=== PATIENT | male | born 1985 ===

== ENCOUNTER → 2017-03-24 15:03 | Day surgery (SDC) | payer OTHER ==
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
[~2017-03-24 15:03] MED LIST: Buffered Lidocaine 0.9% SYRIN* 5 ML/SYR SYRINGE ONE; Famotidine IV* 10 MG/ML 2 ML (20 mg) IV SLOW PU ONE; Famotidine IV* 10 MG/ML 2 ML (20 mg) ONE; Levofloxacin 750 MG IVPREMIX(* 750 MG/150 ML BAG ONE; Lidocaine 2% PF * 5 ML VIAL ONE; Ondansetron INJ* 2 MG/ML VIAL ONE; PROCHLORPERAZINE INJ 5 MG/ML 2 ML VIAL IV PRN; Propofol* 10 MG/ML 20 ML BTL IV PUSH ONE; fentaNYL* 50 MCG/ML 2 ML VIAL (100 MCG VIAL) IV PRN; fentaNYL* 50 MCG/ML 2 ML VIAL (100 MCG VIAL) ONE; oxyCODONE/Acetamin 5/325 MG* TAB PO PRN
[2017-03-24 19:56] VITALS: BP 151/86
--- NOTE | 2017-03-25 07:18 | OP ---
DATE OF OPERATION: 03/24/17 - [facility] DATE OF : 85 SURGEON: Dheeraj Maloney MD ANESTHESIOLOGIST: Dr. Bernie Forbes. ANESTHESIA: General. PRE-OP DIAGNOSES: 1. Urinary retention. 2. Tight urethral stricture in fossa navicularis. POST-OP DIAGNOSES: 1. Urinary retention. 2. Tight urethral stricture in fossa navicularis. OPERATIVE PROCEDURE: 1. Urethroscopy. 2. Urethral dilation. 3. Complex placement of coude urethral catheter (12-Bahraini). INDICATION FOR PROCEDURE: Mr. Peterson is a 32-year-old white male, who had past history of a distal urethral stricture, which had required urethral dilation in a urologist's office about 10 years ago. He presented to the emergency room at [facility] early this morning in urinary retention. Attempts at passing a urethral catheter were not successful. The patient was able to void a little bit and then he was urgently referred to my office. Several attempts at urethral dilations were not successful, even an 8-Bahraini female urethral catheter could not be passed due to obstruction at the level of the fossa navicularis. Post void bladder ultrasound showed a large residual of more than 500 cc. Because of the above history and findings and the persistent urinary retention, the patient is taken to the operating room on an urgent basis for the above procedure. PATHOLOGY: The urethral meatus looked normal. There was, however, a tight stricture just proximal to the meatus. The stricture was very tight and very dense and a firm area was felt in the urethra in the glans penis from the scarring. When the stricture was finally catheterized, it calibrated to a size to less than 5- Bahraini. DESCRIPTION OF PROCEDURE: After successful general anesthesia, the patient was placed in the lithotomy position and was prepped and draped for a cystoscopy. Attempt at passing small catheters were not successful due to the obstruction just proximal to the urethral meatus. A cystoscopy was not helpful in identifying the site of the stricture due to its proximity to the meatus. Attempts at dilation of the urethra with small Baron dilators caused a false passage in the distal penile urethra. The 17-Bahraini cystoscope was positioned at the level of the meatus. After multiple difficult attempts, an area that was suggestive of a stricture was noted, and a guidewire was successfully introduced through it and positioned inside the bladder. A size 5-Bahraini open-ended catheter was then fed on top of the guidewire and the stricture had to be dilated with the 5-Bahraini catheter to successfully introduced inside the bladder with urine draining from the catheter. The stricture was then dilated using an 8-Bahraini and then a 10-Bahraini open- ended catheter that were fed on top of the guidewire and introduced inside the bladder. For fear of loosing the access past the stricture it was decided to place a small Ramirez catheter for drainage as preliminary treatment. The tip of a 12-Bahraini coude catheter was punctured to allow it to be fed over the guidewire and successfully introduced it inside the bladder, and the balloon inflated with 15 cc of water. There was clear urine drained from the bladder. Because there was some blood dripping from the meatus because of the false passage, a Coban dressing was applied on the penis controlling the oozing. The patient tolerated the procedure well and left the operating room in good condition. The plan is to keep the catheter in place until the site of the surgery is healed up. He will then need a definitive treatment of this stricture and internal urethrotomy. [id number]/[facility] #: [id number] [facility]ERS[facility]ri
== END | disposition home or self-care (01) ==
LOC: OR 15:03
PROVIDERS: ATTEND Urology
DX: N35.9 Urethral stricture, unspecified (principal); R33.8 Other retention of urine; N99.71 Accidental puncture and laceration of a genitourinary system organ or structure during a genitourinary system procedure; I10 Essential (primary) hypertension; E66.01 Morbid (severe) obesity due to excess calories; Z88.0 Allergy status to penicillin; Z88.2 Allergy status to sulfonamides; Z86.711 Personal history of pulmonary embolism
CPT/HCPCS: J2405; J2704; J3010